=== PATIENT | female | born 1995 | race Caucasian/White ===

== ENCOUNTER 2022-09-14 17:12 | Outpatient (CLI) | payer OTHER ==
--- NOTE | 2022-09-15 10:12 | Ultrasound Report ---
PROCEDURE: OB First Trimester INDICATIONS: POSITIVE TEST OUTSIDE/PRIOR DATING DATA: Last menstrual period (LMP): 07/05/2022. LMP-based estimated date of delivery (NEETU): 04/11/2023 First dating scan (date and location): Today. Estimated date of delivery (NEETU) from first dating scan: 04/09/2023. TECHNIQUE: Real-time scanning was performed of the fetus and maternal pelvic organs, with image documentation. COMPARISON: None FINDINGS: Heart rate 167 bpm. Intrauterine gestational sac with crown-rump length 2.5 cm corresponding to ultra sound age of 10 weeks and 3 days. Adnexal structures within normal limits., There is a left corpus marce teum. Patient declined transvaginal examination. IMPRESSION: Living intrauterine gestation at an ultrasound age of 10 weeks and 3 days, concordant with reported L MP. Reviewed by: Ayden Gonzalez MD on 09/15/2022 10:11 AM PDT Approved by: Ayden Gonzalez MD on 09/15/2022 10:11 AM PDT Station ID: [id number]
== END 2022-09-14 17:13 | disposition home or self-care (01) ==
LOC: DI 17:12
PROVIDERS: ATTEND Nurse Practitioner
DX: Z34.91 Encounter for supervision of normal pregnancy, unspecified, first trimester (principal)

== ENCOUNTER 2022-09-29 10:28 | Outpatient (CLI) | payer OTHER ==
[2022-09-29 10:51] LABS: BASOPHILS % (AUTO) 0.3 %; EOSINOPHILS # (AUTO) 0.1 10^3/uL (0.0-0.7); EOSINOPHILS % (AUTO) 1.1 %; HCT - HEMATOCRIT 37.6 % (37.0-47.0); HGB - HEMOGLOBIN 13.2 g/dL (12.0-16.0); LYMPHOCYTES % (AUTO) 21.4 %; MEAN CORPUSCULAR HGB CONC 35.1 g/dL (32.0-36.0); MEAN CORPUSCULAR VOLUME 85.5 fL (81.0-99.0); MEAN PLATELET VOLUME 8.7 fL (7.9-10.8); MONOCYTES # (AUTO) 0.6 10^3/uL (0.0-1.0); NEUTROPHILS # (AUTO) 6.5 10^3/uL (1.5-6.6); PLT - PLATELET COUNT 274 10^3/uL (130-450); RED CELL DISTRIBUTION WIDTH 12.8 % (12.0-15.0); WHITE BLOOD COUNT 9.1 x10^3/uL (4.8-10.8)
[2022-09-29 20:05] LABS: CHLAMYDIA TRACHOMATIS DNA NEGATIVE (NEGATIVE); NEISSERIA GONORRHOEAE DNA NEGATIVE (NEGATIVE); TRICHOMONAS VAGINALIS DNA NEGATIVE (NEGATIVE)
[2022-09-30 03:09] LABS: RPR Non Reactive (Non Reactive)
[2022-09-30 04:08] LABS: HBsAG SCREEN Negative (Negative); HCV AB Non Reactive (Non Reactive); HIV SCREEN 4TH GENERATION Non Reactive (Non Reactive)
[2022-09-30 08:09] LABS: VARICELLA-ZOSTER AB IGG 182 index (Immune >165)
== END 2022-09-29 10:29 | disposition home or self-care (01) ==
LOC: LAB 10:28
PROVIDERS: ATTEND Nurse Practitioner
DX: Z34.90 Encounter for supervision of normal pregnancy, unspecified, unspecified trimester (principal)
CPT/HCPCS: 36415; 85025; 86592; 86762; 86787; 86803; 86850; 86900; 86901; 87340; 87389; 87491; 87591; 87661

== ENCOUNTER 2022-10-17 22:15 | Emergency (ER) | payer OTHER ==
--- NOTE | 2022-10-17 22:41 | ED Physician Documentation ---
History of Present Illness - Stated complaint Stated Complaint: PREG/BLEEDING - Chief complaint Chief Complaint: General - History obtained from History obtained from: Patient - Additonal information Additional information: The patient comes to the emergency department with chief complaint of vaginal bleeding after intercourse. She is 14 to 15 weeks and had an ultrasound about a month ago that demonstrated an IUP. She was about 10 weeks along at that time. The patient states that they tried to be gentle while having intercourse this afternoon, but when they were done, the patient noticed a gush of red blood that came out. She states that it seems to have come in waves since with the flow going downhill most nothing and then another gush coming. She denies any cramping or other pain. She has not passed any clots or tissue. She states that her has been uneventful until now. It is her first . PD PAST MEDICAL HISTORY - Allergies Allergies/Adverse Reactions: Allergies Allergy/AdvReac Type Severity Reaction Status Date / Time No Known Drug Allergies Allergy Verified 10/17/22 22:20 PD ED PE NORMAL - Vitals Vital signs reviewed: Yes - General General: Alert and oriented X 3, No acute distress, Well developed/nourished - HEENT HEENT: Atraumatic, PERRL, EOMI, Moist mucous membranes - Neck Neck: Supple, no meningeal sign - Cardiac Cardiac: RRR, No murmur - Respiratory Respiratory: No respiratory distress, Clear bilaterally - Abdomen Abdomen: Soft, Non tender, Non distended - Derm Derm: Normal color, Warm and dry, No rash - Extremities Extremities: No deformity - Neuro Neuro: Alert and oriented X 3, Other - Psych Psych: Normal mood, Normal affect Results - Vitals Vitals: Vital Signs - 24 hr 10/17/22 10/17/22 22:18 23:55 Temperature 37.1 C Heart Rate 103 H 83 Respiratory 16 16 Rate Blood Pressure 106/88 H 107/61 O2 Saturation 100 100 Oxygen O2 Source Room air - Labs Labs: Laboratory Tests 10/17/22 10/17/22 22:37 22:41 Beta HCG, Quant 05028.3 Urine Color YELLOW Urine Clarity HAZY Urine pH 5.0 Ur Specific [place] 1.025 Urine Protein TRACE Urine Glucose (UA) NEGATIVE Urine Ketones TRACE Urine Occult Blood LARGE H Urine Nitrite NEGATIVE Urine Bilirubin NEGATIVE Urine Urobilinogen 0.2 (NORMAL) Ur Leukocyte Esterase NEGATIVE Urine RBC 11-25 H Urine WBC 0-3 Ur Squamous Epith Cells RARE Squamous Urine Bacteria Rare Ur Microscopic Review INDICATED Urine Culture Comments NOT INDICATED - Rads (name of study) OB ultrasound Relevant Findings:: Final report received, See rad report (Viable 15-week IUP) PD Medical Decision Making - ED course Complexity details: reviewed results, re-evaluated patient, considered differential, d/w patient ED course: The patient was worked up with quantitative hCG, UA, and OB ultrasound. . The patient's ultrasound showed a viable 15-week IUP. I discussed with her that I am not clear exactly why she experienced the bleeding this evening but at this point, there does not appear to be a problem with the fetus. We have discussed that there is still a chance that she could miscarry and if she experiences progression of her symptoms, then she should talk with her OB about what to do. We have discussed the usual indications for return. Departure - Departure Disposition: 01 Home, Self Care Clinical Impression: Vaginal bleeding during Condition: Stable Instructions: ED Miscarriage Poss Comments: Your ultrasound today looks good. Your hormones are appropriate for your stage of . It is not clear why you blood after intercourse today, but at this point in time, there is no evidence of any problem with the . Anytime you bleed during , there is a possibility that it signals stressed your and that you could miscarry; however, there is no way to know for sure and only time will tell. Most likely, the bleeding was from the movement associated with intercourse and will stop on its own. As far as sexual intercourse during , a healthy should not be aff ected by this. Please speak with your chiller technician if you have further questions regarding recommendations for activities that you continue during , including intercourse. Forms: PCP List Discharge Date/Time: 10/18/22 00:06
[2022-10-17 22:51] LABS: BILIRUBIN,URINE NEGATIVE (NEGATIVE); GLUCOSE, URINE (UA) NEGATIVE (NEGATIVE); KETONES,URINE (UA) TRACE mg/dL (NEGATIVE); LEUKOCYTE ESTERASE, URINE NEGATIVE (NEGATIVE); NITRITE,URINE NEGATIVE (NEGATIVE); OCCULT BLOOD,URINE LARGE (NEGATIVE); PROTEIN,URINE TRACE mg/dL (NEGATIVE); UROBILINOGEN,URINE 0.2 (NORMAL) E.U./dL (NORMAL)
[2022-10-17 22:52] LABS: CLARITY,URINE HAZY (CLEAR)
[2022-10-17 23:01] LABS: BACTERIA,URINE Rare /HPF (None Seen); SQUAMOUS EPITHELIAL CELL,UR RARE Squamous (<= Few); WBC,URINE 0-3 /HPF (0-5)
[2022-10-17 23:56] VITALS: BP 107/61
--- NOTE | 2022-10-18 02:09 | Ultrasound Report ---
PROCEDURE: OB 14+ Weeks INDICATIONS: /bleeding OUTSIDE/PRIOR DATING DATA: Last menstrual period (LMP): 07/05/2022. LMP-based estimated date of delivery (NEETU): 04/11/2023. First dating scan (date and location): 09/14/2022. Estimated date of delivery (NEETU) from first dating scan: 04/09/2023. The below data below was generated using the ultrasound NEETU of 04/09/2023 TECHNIQUE: Real-time scanning was performed of the fetus, with image documentation and biometric measurements. COMPARISON: 09/14/2022. FINDINGS: General: A single living intrauterine gestation is present. heart rate: 150 beats per minute. Maternal cervical canal: Cervix appears closed. No periplacental collections. biometrics: Biparietal diameter: 3.1 cm, 15 weeks 5 days Head circumference: 11.6 cm, 15 weeks 5 days Abdominal circumference: 9.1 cm, 15 weeks 2 days Femur length: 1.6 cm, 40 weeks 4 days Estimated gestational. Age from initial scan: 15 weeks 1 day. Composite gestational age from present scan: 15 weeks 2 days Estimated weight and percentile: 113 g, 31st percentile Measurement variability for biometric dating: +/- 10 days from 12-20 weeks gestation, +/- 2 weeks fro m 20-30 weeks gestation, +/- 3 weeks for 30 weeks gestation or later. IMPRESSION: 1. Single living imaging demonstrating appropriate interval growth with estimated danny ght at the 31st percentile. Reviewed by: Lobo Rosenberg MD on 10/18/2022 2:08 AM PDT Approved by: Lobo Rosenberg MD on 10/18/2022 2:08 AM PDT Station ID: [id number]
== END 2022-10-18 00:06 | disposition home or self-care (01) ==
LOC: ED 22:15
DX: O20.9 Hemorrhage in early pregnancy, unspecified (principal); Z3A.15 15 weeks gestation of pregnancy
CPT/HCPCS: 36415; 81001; 81003; 84702; 87086; 99283; 99284

== ENCOUNTER 2022-11-20 14:01 | Outpatient (CLI) | payer OTHER ==
--- NOTE | 2022-11-21 11:34 | Ultrasound Report ---
PROCEDURE: OB Detailed Eval INDICATIONS: SUPERVISION OF OUTSIDE/PRIOR DATING DATA: Last menstrual period (LMP): 07/05/2022. LMP-based estimated date of delivery (NEETU): 04/11/2023. First dating scan (date and location): 09/14/2022. Estimated date of delivery (NEETU) from first dating scan: 04/09/2023. 3 TECHNIQUE: Real-time scanning was performed of the fetus, with image documentation and biometric measurements. COMPARISON: Prior OB ultrasound dated 10/17/2022 FINDINGS: General: A single living intrauterine gestation is present. Presentation: Variable Placenta: Placental position is anterior, without previa. Amniotic fluid index: 13.5 cm cm, within normal limits for gestational age. heart rate: 162 beats per minute. Maternal cervical canal: 4.9 cm long; normal length is 2.5 cm or more. biometrics: Biparietal diameter: 20 weeks Head circumference: 19 weeks 5 days Abdominal circumference: 20 weeks 5 days Femur length: 19 weeks 5 days Estimated gestational age from initial scan: 20 week Composite gestational age from present scan: 19 weeks 6 days Estimated weight and percentile: 308 g; 29th percentile Measurement variability in biometric dating: +/- 10 days from 12-20 weeks gestation, +/- 2 weeks from 20-30 weeks gestation, +/- 3 weeks at 30 weeks gestation or later. Anatomic survey: Neuro: Ventricles are normal at less than 10 mm. Cisterna magna is normal at 3-11 mm. Cerebellum i s normal in size and morphology. Nuchal skin fold: Normal at less than 6 mm between 14 and 20 weeks gestational age. Face: Nose and lips, facial profile are normal. Spine: No evidence for spina bifida. Heart: 4-chambered heart is present, with normal ventricular outflow tracts. Diaphragm: Diaphragm is intact. Stomach: Left-sided stomach is present. Kidneys: No hydronephrosis. Normal is less than 5 mm in 2nd trimester, less than 7 mm in 3rd trimester. Cord: 3 vessel cord has orthotopic insertion. Bladder: Normal in size. Extremities: All 4 extremities are visualized. IMPRESSION: 1. Single living IUP redemonstrated and interval growth is normal. 2. Normal anatomic survey. Reviewed by: WENDY Menjivar on 11/21/2022 11:33 AM PDT Approved by: Kylah Vivar MD on 11/21/2022 11:33 AM PDT Station ID: [id number]
== END 2022-11-20 14:02 | disposition home or self-care (01) ==
LOC: DI 14:01
PROVIDERS: ATTEND Obstetrics & Gynecology
DX: O09.92 Supervision of high risk pregnancy, unspecified, second trimester (principal); Z3A.19 19 weeks gestation of pregnancy

== ENCOUNTER 2023-01-23 15:44 | Outpatient (CLI) | payer OTHER ==
--- NOTE | 2023-01-24 11:51 | Ultrasound Report ---
PROCEDURE: OB F/U or Repeat INDICATIONS: UTERINE SIZE DATE DISCREPENCY OUTSIDE/PRIOR DATING DATA: Last menstrual period (LMP): 07/05/2022. LMP-based estimated date of delivery (NEETU): 04/11/2023. First dating scan (date and location): 09/14/2022. Estimated date of delivery (NEETU) from first dating scan: 04/09/2023. The below data below was generated using the ultrasound NEETU of 04/09/2023 TECHNIQUE: Real-time scanning was performed of the fetus, with image documentation and biometric measurements. Endovaginal scanning: Not performed. COMPARISON: None. FINDINGS: General: A single living intrauterine gestation is present. Presentation: Breech Placenta: Placental position is anterior, without previa. Amniotic fluid index: 16.5 cm, within normal limits for gestational age. Largest pocket measured 4 .8 cm. heart rate: 131 beats per minute. Maternal cervical canal: 3.5 cm long; normal length is 2.5 cm or more. biometrics: Biparietal diameter: 7.79 cm, 31 weeks and 2 days, 92.6 percentile Head circumference: 28.96 cm, 31 weeks and 6 days, 90th percentile Abdominal circumference: 25.27 cm, 29 weeks and 3 days, 53.8 percentile Femur length: 5.36 cm, 20 weeks and 3 days, 16.8 percentile Estimated gestational age from initial scan: 29 weeks and 1 day Composite gestational age from present scan: 30 weeks and 2 days Estimated weight and percentile: 1400 g, 49.3 percentile Measurement variability in biometric dating: +/- 10 days from 12-20 weeks gestation, +/- 2 weeks from 20-30 weeks gestation, +/- 3 weeks at 30 weeks gestation or more. Other: Not applicable. IMPRESSION: Single living intrauterine gestation with estimated sonographic gestational age of appro ximately 30 weeks and 2 days. Normal interval growth has occurred. Estimated weight of approximately 1400 g which correlates with the 49th percentile. Four-quadrant LELIA measuring 16.5 cm with largest vertical pocket measuring 4.8 cm. Reviewed by: Fazal Best MD on 01/24/2023 11:50 AM PDT Approved by: Fazal Best MD on 01/24/2023 11:50 AM PDT Station ID: [id number]
== END 2023-01-23 15:45 | disposition home or self-care (01) ==
LOC: DI 15:44
PROVIDERS: ATTEND Nurse Practitioner
DX: O26.843 Uterine size-date discrepancy, third trimester (principal); Z3A.30 30 weeks gestation of pregnancy

== ENCOUNTER 2023-03-09 15:53 | Outpatient (CLI) | payer OTHER ==
--- NOTE | 2023-03-10 09:44 | Ultrasound Report ---
PROCEDURE: OB F/U or Repeat INDICATIONS: UTERINE SIZE DATE DISCREPENCY OUTSIDE/PRIOR DATING DATA: Last menstrual period (LMP): 07/05/2022. LMP-based estimated date of delivery (NEETU): 04/11/2023. First dating scan (date and location): 09/14/2022. Estimated date of delivery (NEETU) from first dating scan: 04/09/2023. The below data below was generated using the ultrasound NEETU of 04/09/2023 TECHNIQUE: Real-time scanning was performed of the fetus, with image documentation and biometric measurements. Endovaginal scanning: Not performed. COMPARISON: OB ultrasound 01/23/2023 FINDINGS: General: A single living intrauterine gestation is present. Presentation: Vertex Placenta: Placental position is anterior fundal, without previa. Amniotic fluid index: 11.3 cm, within normal limits for gestational age. Largest fluid pocket is 3. 8 cm. heart rate: 141 beats per minute. Maternal cervical canal: Not well visualized due to positioning. biometrics: Biparietal diameter: 8.96 cm, 36 weeks 2 days, 75th percentile Head circumference: 32.84 cm, 37 weeks 2 days, 62nd percentile Abdominal circumference: 30.42 cm, 34 weeks 3 days, 25th percentile Femur length: 6.83 cm, 35 weeks 1 day, 31st percentile Estimated gestational age from initial scan: 35 weeks 4 days Composite gestational age from present scan: 35 weeks 6 days Estimated weight and percentile: 2584 g, 35th percentile Measurement variability in biometric dating: +/- 10 days from 12-20 weeks gestation, +/- 2 weeks from 20-30 weeks gestation, +/- 3 weeks at 30 weeks gestation or more. Other: Not applicable. IMPRESSION: 1.Single live intrauterine with appropriate interval growth. Estimated weight is at t he 35th percentile for gestational age. 2.Nuchal cord is noted. Reviewed by: Jalen Arshad MD on 03/10/2023 9:43 AM PST Approved by: Jalen Arshad MD on 03/10/2023 9:43 AM PST Station ID: [id number]
== END 2023-03-09 15:54 | disposition home or self-care (01) ==
LOC: DI 15:53
PROVIDERS: ATTEND Obstetrics & Gynecology
DX: O26.843 Uterine size-date discrepancy, third trimester (principal); Z3A.35 35 weeks gestation of pregnancy

== ENCOUNTER 2023-03-16 08:00 | Outpatient (CLI) | payer OTHER | END 2023-03-16 23:59 | disposition home or self-care (01) | LOC: LAB.WC 08:00 | PROVIDERS: ATTEND Nurse Practitioner | DX: Z36.85 Encounter for antenatal screening for Streptococcus B (principal) | CPT/HCPCS: 87797 ==

== ENCOUNTER 2023-04-10 08:23 | Outpatient (CLI) | payer OTHER ==
[2023-04-10 09:06] VITALS: BP 116/76
--- NOTE | 2023-04-10 11:21 | HISTORY & PHYSICAL EXAMINATION ---
History and Physical - History and Physical CC: ? labor HPI: 27 yo G1 at 39w5d by 10 week uls = LMP. c/b measuring small on her belly but normal growth on uls. last before today 03/10/23. no other concerns. presents today to rule out labor. She is not contraction here and so her cervix was not checked, but she was noted to have arrythmia. med hx: nothing remarkable. normal weight. 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 She has never smoked. ROS: + movement. no h/a, n/v, LOF. PE: VSS. normal. FHT 160s + acels then lots of skipped beats. no respitory issues. RRR abdomen not tender cervix deferred. Ultrasound done and shows efw: 25%ile, LELIA 11.4. BPP 6/8 - no breathing. Irreg heart beat. A/P term with new onset arrythmia. d/w Dr. Leigh Ann Jacobo at and will transfer patient there for further evaluation of baby and delivery. I discussed with Nhi what to expect when she gets there, as much as I could. Baby seems OK for now. often irregular heart rhythms will resolve after delivery but we want baby to be where she can get the best care if she would need something more. Nhi agrees to transfer and this is arranged.
--- NOTE | 2023-04-10 11:30 | Ultrasound Report ---
PROCEDURE: OB Follow up INDICATIONS: small for dates OUTSIDE/PRIOR DATING DATA: Last menstrual period (LMP): 07/05/2022. LMP-based estimated date of delivery (NEETU): 04/11/2023. First dating scan (date and location): 09/14/2022 Estimated date of delivery (NEETU) from first dating scan: 04/09/2023. TECHNIQUE: Real-time scanning was performed of the fetus, with image documentation and biometric measurements. Endovaginal scanning: Not performed. COMPARISON: 03/09/2023 FINDINGS: General: A single living intrauterine gestation is present. Presentation: Vertex Placenta: Placental position is anterior, without previa. Amniotic fluid index: 11.4 cm, within normal limits for gestational age. heart rate: 153 beats per minute; irregular. Maternal cervical canal: 4.2 cm long; normal length is 2.5 cm or more. biometrics: Biparietal diameter: 93 mm; 37 weeks 6 days Head circumference: 334 mm; 38 weeks 1 day Abdominal circumference: 344 mm; 38 weeks 2 days Femur length: 72 mm; 36 weeks 5 days Estimated gestational age from initial scan: 40 weeks 1 day Composite gestational age from present scan: 37 weeks 5 days Estimated weight and percentile: 3333 g, which is at the 25th percentile for gestational age Measurement variability in biometric dating: +/- 10 days from 12-20 weeks gestation, +/- 2 weeks from 20-30 weeks gestation, +/- 3 weeks at 30 weeks gestation or more. Other: Limited survey of anatomy includes normal chest/diaphragm, stomach/abdomen, bilateral re nal regions. A nuchal cord is present. IMPRESSION: 1. Single living intrauterine gestation. 2. Estimated weight is at the 25th percentile for gestational age. 3. Irregular heart rate. 4. Nuchal cord. Reviewed by: Pratik Alonso MD on 04/10/2023 11:28 AM PST Approved by: Pratik Alonso MD on 04/10/2023 11:28 AM PST Station ID: [id number]
--- NOTE | 2023-04-10 11:32 | Ultrasound Report ---
PROCEDURE: OB Biophysical Profile INDICATIONS: irregular heart rate OUTSIDE/PRIOR DATING DATA: Last menstrual period (LMP): 07/05/2022. LMP-based estimated date of delivery (NEETU): 04/11/2023. First dating scan (date and location): 09/14/2022 Estimated date of delivery (NEETU) from first dating scan: 04/09/2023. TECHNIQUE: Real-time scanning was performed of the fetus, with image documentation and biometric vianca surements. Biophysical profile was also obtained. Endovaginal scanning: No COMPARISON: 03/09/2023 FINDINGS: Biophysical profile: Tone: 2 points. Movement: 2 points. Respiration: 0 points. Largest pocket of fluid: 2 points. IMPRESSION: Biophysical profile score is 6 out of 8, with 0 points scored for respiration. Reviewed by: Pratik Alonso MD on 04/10/2023 11:30 AM PST Approved by: Pratik Alonso MD on 04/10/2023 11:30 AM PST Station ID: [id number]
--- NOTE | 2023-04-17 10:55 | PROCEDURE REPORT ---
- HPI Current EDU 04/11/23 Gestation 39 Weeks and 6 Days 1 Para 0 Vital Signs Temperature 98.2 F 04/10/23 08:40 Heart Rate 77 04/10/23 08:40 Respiratory Rate 16 04/10/23 08:40 Blood Pressure 116/76 04/10/23 08:40 Temperature 98.2 F 04/10/23 12:30 Heart Rate 77 04/10/23 12:30 Respiratory Rate 16 04/10/23 12:30 Blood Pressure 116/76 04/10/23 12:30 O2 Saturation If not protocol: Oxygen Flow, liters/minute - NST Procedure NST Procedure Start Date 04/10/23 Start Time 07:57 Stop Time 09:20 Vibroacoustic Stimulation Used No Patient States Movement Yes monitoring done. + acels not decels but lots of skipped beats. - Results and Plan Findings/Impression: arrythmia. Plan: BPP and then transfer to [facility]
== END 2023-04-10 12:29 | disposition short-term general hospital (02) ==
LOC: WFO 08:23 → FBP 08:25 → WFO 12:29
PROVIDERS: ATTEND Obstetrics & Gynecology
DX: O36.8330 Maternal care for abnormalities of the fetal heart rate or rhythm, third trimester, not applicable or unspecified (principal); O36.5930 Maternal care for other known or suspected poor fetal growth, third trimester, not applicable or unspecified; Z3A.39 39 weeks gestation of pregnancy
CPT/HCPCS: 59025; 87635; 99215

== ENCOUNTER 2023-06-12 18:18 | Emergency (ER) | payer OTHER ==
[2023-06-12 18:31] VITALS: BP 129/78; O2SAT 100
--- NOTE | 2023-06-12 18:36 | ED Physician Documentation ---
History of Present Illness - Stated complaint Stated Complaint: L BREAST SWOLLEN - Chief complaint Chief Complaint: General - History obtained from History obtained from: Patient (Otherwise healthy 27-year-old woman has had 2 days of left breast pain. She is breast-feeding a 2-month-old. No fevers.) PD PAST MEDICAL HISTORY - Past Medical History Past Medical History: No Cardiovascular: None Respiratory: None Neuro: None Endocrine/Autoimmune: None GI: None CYBER SECURITY ENGINEER: None : None HEENT: None Psych: None Musculoskeletal: None Derm: None - Past Surgical History Past Surgical History: No - Present Medications Home Medications: Ambulatory Orders Medication Instructions Recorded Confirmed cephALEXin [Keflex] 500 mg PO Q6H #28 cap 06/12/23 - Allergies Allergies/Adverse Reactions: Allergies Allergy/AdvReac Type Severity Reaction Status Date / Time No Known Drug Allergies Allergy Verified 06/12/23 18:21 - Social History Does the pt smoke?: No Smoking Status: Never smoker Does the pt drink ETOH?: No Does the pt have substance abuse?: No - Immunizations Immunizations are current?: Yes - POLST Patient has POLST: No PD ED PE NORMAL - Vitals Vital signs reviewed: Yes - General General: Alert and oriented X 3, No acute distress - Derm Derm: Other (Large left medial breast abscess with overlying cellulitis. All exams and interventions done with Nevaeh ALEXANDER present and chaperoning.) - Neuro Neuro: Alert and oriented X 3, Normal speech Results - Vitals Vitals: Vital Signs - 24 hr 06/12/23 18:21 Temperature 36.8 C Heart Rate 88 Respiratory 16 Rate Blood Pressure 129/78 O2 Saturation 100 Oxygen O2 Source Room air - Labs Labs: Microbiology 06/12/23 19:25 Wound Culture - Preliminary Abscess Laboratory Tests 06/12/23 06/12/23 18:41 18:41 WBC 11.6 H RBC 4.21 Hgb 11.7 L Hct 36.9 L MCV 87.6 MCH 27.8 MCHC 31.7 L RDW 14.0 Plt Count 325 MPV 8.7 Neut # (Auto) 8.3 H Lymph # (Auto) 1.8 Wirt # (Auto) 0.6 Eos # (Auto) 0.8 H Baso # (Auto) 0.1 Absolute Nucleated RBC 0.00 Nucleated RBC % 0.0 Sodium 141 Potassium 3.8 Chloride 107 Carbon Dioxide 28 Anion Gap 6.0 BUN 16 Creatinine 0.8 Estimated GFR (MDRD) 87 L Glucose 85 Calcium 9.5 Procedures - Abscess I&D (location) L breast Preparation: Confirmed with ultrasound, Chlorhexadine, Lidocaine 1%, With epi Incision: Needle aspiration (30ml of pus, send for cx, irrigated with more lidocaine and re-aspirated) Other: Pt tolerated well, Antibiotic prescribed PD Medical Decision Making - ED course ED course: 27-year-old woman with a breast-feeding related left breast abscess. Case discussed by phone with our on-call surgeon, Dr. Dillon who recommends simple needle aspiration with antibiotics. Departure - Departure Disposition: Home, Self Care Clinical Impression: Breast abscess of female Condition: Good Record reviewed to determine appropriate education?: Yes Instructions: ED Breast Infec Prescriptions: cephALEXin [Keflex] 500 mg PO Q6H #28 cap Comments: We are performing a wound culture, the results should be done in 48-72 hours. If antibiotic change is necessary we will call you. Return if worse in the meantime, especially if you develop increased pain, fevers, cannot keep down the medication. Otherwise follow-up with your physician in approximately 2-3days, if you are unable to follow-up with your physician please return here for for wound check. Forms: PCP List Discharge Date/Time: 06/12/23 20:08
[2023-06-12 18:51] LABS: BASOPHILS # (AUTO) 0.1 10^3/uL (0.0-0.1); BASOPHILS % (AUTO) 0.4 %; EOSINOPHILS # (AUTO) 0.8 10^3/uL (0.0-0.7); EOSINOPHILS % (AUTO) 6.8 %; HCT - HEMATOCRIT 36.9 % (37.0-47.0); HGB - HEMOGLOBIN 11.7 g/dL (12.0-16.0); LYMPHOCYTES # (AUTO) 1.8 10^3/uL (1.5-3.5); LYMPHOCYTES % (AUTO) 15.7 %; MEAN CORPUSCULAR HEMOGLOBIN 27.8 pg (27.0-31.0); MEAN CORPUSCULAR HGB CONC 31.7 g/dL (32.0-36.0); MEAN CORPUSCULAR VOLUME 87.6 fL (81.0-99.0); MEAN PLATELET VOLUME 8.7 fL (7.9-10.8); MONOCYTES # (AUTO) 0.6 10^3/uL (0.0-1.0); MONOCYTES % (AUTO) 5.2 %; NEUTROPHILS # (AUTO) 8.3 10^3/uL (1.5-6.6); NEUTROPHILS % (AUTO) 71.6 %; PLT - PLATELET COUNT 325 10^3/uL (130-450); RED BLOOD COUNT 4.21 10^6/uL (4.20-5.40); WHITE BLOOD COUNT 11.6 x10^3/uL (4.8-10.8)
[2023-06-12] MEDS: ceFAZolin 1 GM in SODIUM CHLORIDE 0.9% MINIBAG 100 ML IV STA (18:58)
[2023-06-12] MEDS: BUFFERED LIDOCAINE 10 ML SYRINGE SUBQ STA (18:59)
[2023-06-12 19:07] LABS: CALCIUM 9.5 mg/dL (8.5-10.3); CREATININE 0.8 mg/dL (0.6-1.3); POTASSIUM 3.8 mmol/L (3.5-4.5)
[2023-06-12] MEDS ORDERED: LIDOCAINE 2%-EPI 1:100000 20 ML MDV ONE (19:14)
[2023-06-12] MEDS: LIDOCAINE 1%-EPI 1:100000 20 ML MDV SUBQ STA (19:30)
[2023-06-12] MEDS: ceFAZolin 1 GM in SODIUM CHLORIDE 0.9% MINIBAG 100 ML IV SCH (19:35)
== END 2023-06-12 20:08 | disposition home or self-care (01) ==
LOC: ED 18:18
DX: O91.13 Abscess of breast associated with lactation (principal)
CPT/HCPCS: 10160; 36415; 80048; 85025; 87070; 87205; 99284

== ENCOUNTER 2023-06-14 16:30 | Emergency (ER) | payer OTHER ==
[2023-06-14 16:46] VITALS: BP 103/86; O2SAT 999
--- NOTE | 2023-06-14 17:27 | ED Physician Documentation ---
History of Present Illness - Stated complaint Stated Complaint: - Chief complaint Chief Complaint: General - Additonal information Additional information: 27-year-old female presents emergency department for left breast pain. Patient was seen here an incision and drainage was completed of left breast abscess due to mastitis. She has been taking all prescribed antibiotics without missing any doses but she said that she just worried because she still having some oozing at the site and wanted to make sure that it did not need to be drained again. She has had no fevers or chills she does endorse and some left breast pressure. PD PAST MEDICAL HISTORY - Past Medical History Cardiovascular: None Respiratory: None Neuro: None Endocrine/Autoimmune: None GI: None ASSESSMENT COUNSELOR: None : None HEENT: None Psych: None Musculoskeletal: None Derm: None - Past Surgical History Past Surgical History: No - Present Medications Home Medications: Ambulatory Orders Medication Instructions Recorded Confirmed cephALEXin [Keflex] 500 mg PO Q6H #28 cap 06/12/23 - Allergies Allergies/Adverse Reactions: Allergies Allergy/AdvReac Type Severity Reaction Status Date / Time No Known Drug Allergies Allergy Verified 06/14/23 16:45 - Social History Does the pt smoke?: No Smoking Status: Never smoker Does the pt drink ETOH?: No Does the pt have substance abuse?: No - Immunizations Immunizations are current?: Yes - POLST Patient has POLST: No PD ED PE NORMAL - Vitals Vital signs reviewed: Yes - General General: Alert and oriented X 3, No acute distress, Well developed/nourished - Free text exam Free text exam: Left breast: Obvious induration to the left breast to the medial portion of the breast. There is about a 7 cm fluctuant mass with oozing of what appears to be breastmilk no purulent drainage. There is mild erythema surrounding the left breast with some excoriation of the left breast. Results - Vitals Vitals: Vital Signs - 24 hr 06/14/23 16:39 Temperature 36.6 C Heart Rate 78 Respiratory 16 Rate Blood Pressure 103/86 H O2 Saturation 999 H Oxygen O2 Source Room air PD Medical Decision Making - ED course ED course: 27-year-old female presents emergency department for left wrist fullness and pain. Patient is on Keflex for left breast infection/mastitis. Drainage from a couple days ago was sent to lab for cultures and there is no growth to date. I numbed the left breast with lidocaine and was able to do a needle aspiration with dry about 5 cc of grossly bloody breastmilk. No purulent drainage. Erythema surrounding the left breast. Patient is reports that most of the pain is the excoriation/rawness of the left breast versus the actual mastitis. Patient was told to continue antibiotics prescribed and to follow-up with CPR INSTRUCTOR she says that she feels significant improvement of symptoms already after having just the 5 cc of breastmilk removed from that area. Continues denying fevers or chills. Patient told to apply warm heat and compresses as well as some gentle massage to the left breast to help with mastitis and to continue to either breast-feed or pump on that side.She is aware of discharge teaching return precautions taught all questions answered. Departure - Departure Disposition: 01 Home, Self Care Clinical Impression: Mastitis Instructions: ED Breast Infec Comments: We have drained a small amount of your left breast in addition to the drainage that you already had completed a couple days ago. As we discussed make sure that you are doing lots of warm compresses to that area doing some gentle massaging and you can apply something thick like Aquaphor to the area around the drainage to help with barrier protection and the raw skin on your breast. Continue with antibiotics continue breast-feeding on that left side. Follow-up with CPR IN[employer]CTOR this week if you are able to. Please come back in 2 days if you have no improvement of symptoms or if you start develop any fevers or chills. Forms: PCP List
== END 2023-06-14 17:30 | disposition home or self-care (01) ==
LOC: ED 16:30
DX: O91.12 Abscess of breast associated with the puerperium (principal)
CPT/HCPCS: 10160; 99283